=== PATIENT | female | born 2000 | race Caucasian/White ===

== ENCOUNTER 2021-03-04 12:44 | Outpatient (CLI) | payer OTHER ==
[2021-03-04] MEDS ORDERED: GADOBUTROL 10 MMOL/10 ML VIAL ONE (12:53)
[2021-03-04] MEDS ORDERED: GADOBUTROL 10 MMOL/10 ML VIAL IVP ONE (16:28)
--- NOTE | 2021-03-04 18:05 | MRI Report ---
PROCEDURE: Brain W/WO INDICATIONS: HYPERPROLACTINEMIA CONTRAST: IV CONTRAST: Gadavist ml: 6.8 TECHNIQUE: Noncontrast axial T1 spin echo, axial T2 fast spin echo, sagittal and axial FLAIR, coronal T2 fast sp in echo, axial gradient echo, axial diffusion and ADC through the brain. After the administration of contrast, axial and coronal T1 spin echo with fat saturation through the brain. Additionally, pre a nd postcontrast images of the sella were obtained with dedicated dynamic postcontrast images through the sella as well COMPARISON: None. FINDINGS: Sella and Pituitary Gland: The pituitary gland is appropriate in size and signal.? Posterior pituita ry bright spot is unremarkable. The post contrast images demonstrate normal homogeneous enhancement o f the entire gland. The pituitary infundibulum is midline.? No suprasellar mass lesion present. The cavernous sinuses enhance normally. Flow voids are noted in the cavernous segments of both internal carotid arteries. Brain and Meninges: The diffusion sequence is normal without evidence of acute infarct. There is a normal cerebral and cerebellar volume present. White matter is unremarkable without evidence of guido a. Basal cisterns are clear. No evidence of dural or leptomeningeal thickening. No abnormal enhanc ement noted. Susceptibility weighted imaging shows no evidence of intracranial hemorrhage. Ventricles: Appropriate in size and position. No hydrocephalus. Skull Base: Visualized portions of the seventh and eighth cranial nerve complexes and internal radha tory canals are within normal limits. Craniovertebral relationships are normal. Scalp and Calvarium: The scalp is unremarkable. Underlying calvarium has an appropriate marrow sign al. Paranasal Sinuses: Visualized sinuses are clear. Mastoids: Unremarkable as visualized. No mastoid effusion. Orbits: The orbits, globes and ocular muscles unremarkable. IMPRESSION: Unremarkable MRI of the brain and sella. No evidence of pituitary adenoma. Reviewed by: Jg Fulton MD on 03/04/2021 5:04 PM [facility] Approved by: Jg Fulotn MD on 03/04/2021 5:04 PM [facility] Station ID: [id number]
== END 2021-03-04 12:45 | disposition home or self-care (01) ==
LOC: DI 12:44
PROVIDERS: ATTEND Obstetrics & Gynecology
DX: E22.1 Hyperprolactinemia (principal); N92.6 Irregular menstruation, unspecified
CPT/HCPCS: 70553; A9585